=== PATIENT | male | born 1985 | race Caucasian/White ===

== ENCOUNTER 2025-07-10 13:32 | Outpatient (CLI) | payer OTHER, SELFPAY | END 2025-07-10 13:33 | disposition home or self-care (01) | PROVIDERS: Visit Provider Internal Medicine | DX: I10 Essential (primary) hypertension (principal) | CPT/HCPCS: 80053; 84443 ==

== ENCOUNTER 2025-07-16 13:29 | Outpatient (CLI) | payer OTHER, SELFPAY ==
--- NOTE | 2025-07-16 14:00 | CRLHL7_ITS ---
For Patients: As a result of the Century Cures Act, medical imaging exams and procedure reports are released immediately into your electronic medical record. You may view this report before your referring provider. If you have questions, please contact your health care provider. INDICATION: Hypertension. TECHNIQUE: CT abdomen and pelvis acquired with 99 mL Isovue 370 IV contrast. COMPARISON: None. FINDINGS: Lower chest: No focal consolidation. Liver: No suspicious focal hepatic lesion. Gallbladder and bile ducts: Unremarkable. Pancreas: Unremarkable. Spleen: Unremarkable. Adrenal glands: Unremarkable. Kidneys: Kidneys enhance symmetrically, without hydronephrosis. Subcentimeter bilateral nonobstructing renal calculi are noted, measuring up to 0.4 cm in the interpolar region of the right kidney. Retroperitoneum: No lymphadenopathy. Bowel and mesentery: Bowel is not obstructed. No significant ascites, no pneumoperitoneum. Normal appendix. Bladder: Unremarkable for degree of distention. Reproductive organs: No prostatomegaly. Pelvic lymph nodes: No lymphadenopathy. Vessels: Unremarkable. Abdominal wall: No acute abdominal wall abnormality. Bones: Mild multilevel degenerative changes of the spine. No suspicious/aggressive focal osseous lesion. IMPRESSION: 1. Subcentimeter bilateral nonobstructing renal calculi measuring up to 0.4 cm in the right kidney. No hydronephrosis bilaterally. 2. No adrenal mass identified. Please note that all CT scans at this facility use dose modulation, iterative reconstruction, and/or weight-based dosing when appropriate to reduce radiation dose to as low as reasonably achievable. Dictated by Dutch Antony MD @ 07/16/2025 5:02:31 PM (Electronically Signed)
== END 2025-07-16 13:30 | disposition home or self-care (01) ==
PROVIDERS: PCP Internal Medicine; Visit Provider Internal Medicine
DX: I10 Essential (primary) hypertension (principal); N20.0 Calculus of kidney
CPT/HCPCS: 74177; Q9967

== ENCOUNTER 2025-10-15 14:33 | Outpatient (CLI) | payer OTHER, SELFPAY | END 2025-10-15 14:34 | disposition home or self-care (01) | PROVIDERS: PCP Internal Medicine; Visit Provider Internal Medicine | DX: R53.83 Other fatigue (principal) | CPT/HCPCS: 85651; 86038; 86140; 86200; 86431 ==